=== PATIENT | female | born 1990 | race African-American/Black ===

== ENCOUNTER 2018-05-21 01:04 | Inpatient (IN) | payer MEDICARE, OTHER ==
[2018-05-21 02:43] LABS: #Basophils 0.1 thou/uL (0.0-0.2); #Eosinphils 0.2 thou/uL (0.0-0.7); #Lymphocytes 1.2 thou/uL (1.20-3.40); #Monocytes 0.9 thou/uL (0.11-0.59); #Neutrophils 4.2 thou/uL (1.40-6.50); %Basophils 0.8 % (0.0-1.0); %Eosinophils 2.4 % (0.0-10.0); %Lymphocytes 18.3 % (21.0-51.0); %Monocytes 13.5 % (0.0-10.0); Mean Corpuscular HGB CONC 31.6 g/dL (32.0-36.0); Mean Corpuscular Hemoglobin 28.4 pg (27.0-31.0); Mean Corpuscular Volume 89.8 fL (78.0-98.0); Mean Platelet Volume 8.3 fL (7.4-10.4); Platelet Count 294 thou/uL (130-400); RBC Distribution Width 15.9 % (11.5-14.5); Red Blood Cell (RBC) Count 4.22 mill/uL (4.20-5.40); White Blood Cell (WBC) Count 6.5 thou/uL (4.8-10.8)
[2018-05-21] MEDS ORDERED: diphenhydrAMINE 25 MG CAP PO SCH (03:00)
[2018-05-21 03:04] LABS: ALT (SGPT) Less than 7 U/L (8-55); AST (SGOT) 11 U/L (5-34); Albumin 3.7 g/dL (3.5-5.0); Alkaline Phosphatase 54 U/L (40-150); Anion Gap 11 mmol/L (10-20); BHCG - Serum Negative (NEGATIVE); BUN (Urea Nitrogen) 10 mg/dL (7.0-18.7); Bilirubin, Total 0.2 mg/dL (0.2-1.2); Calc. Creatinine Clearance 0 mL/min (70-130); Calcium 9.4 mg/dL (7.8-10.44); Carbon Dioxide 24 mmol/L (22-29); Chloride 106 mmol/L (98-107); Estimated GFR-MDRD Greater than 90; Globulin 3.3 g/dL (2.4-3.5); Glucose 88 mg/dL (70-105); Lipase 22 U/L (8-78); Potassium 3.2 mmol/L (3.5-5.1); Pregs Control Background? CLEAR/WHITE (CLR/WHITE); Pregs Control Bar Appear? YES (CONTROL BAR); Sodium 138 mmol/L (136-145)
[2018-05-21] MEDS ORDERED: Promethazine HCl 25 MG/ML VIAL ONE ×2 (03:09→06:15)
[2018-05-21] MEDS ORDERED: Morphine 4 MG/ML VIAL ONE (03:09)
[2018-05-21 03:45] LABS: Bilirubin Small (Negative); Blood, Urine Trace (Negative); Clarity CLOUDY (Clear); Glucose, Urine (Dipstick) Negative (Negative); Leukocyte Negative (Negative); Nitrite Negative (Negative); Protein, Urine (Dipstick) Trace mg/dL (Neg-Trace); Specific Gravity, Urine 1.034 (1.002-1.036)
[2018-05-21 03:48] LABS: Bacteria/HPF None Seen HPF (None Seen); WBC/HPF 0-3 HPF (0-3); Yeast-AUWi Flag 7.5 (0-25.0)
[2018-05-21 03:49] LABS: Hyaline Casts/LPF 0-3 HYALINE CAST LPF (0-3 Hyaline); Other Casts/LPF None Seen LPF (0-3 Hyaline); Oval Fat Bodies/HPF None Seen HPF (None Seen); Pathc Cast-AUWi Flag 3.63 (0-2.49); Renal Epithelial None Seen HPF (0-3); Sperm/HPF None Seen HPF (None Seen); Transitional Epithelial NONE SEEN HPF (0-3); Trichomonas/HPF None Seen HPF (None Seen); Yeast-All Forms None Seen HPF (None Seen)
[2018-05-21] MEDS ORDERED: cefTRIAXone\\ROCEPHIN 1 GM VIAL ONE (05:02)
[2018-05-21] MEDS ORDERED: Dexamethasone 10 MG/ML VIAL ONE (05:02)
[2018-05-21] MEDS ORDERED: Azithromycin 250 MG TAB ONE (05:02)
[2018-05-21] MEDS ORDERED: Morphine 4 MG/ML VIAL IV PRN (06:48)
[2018-05-21] MEDS ORDERED: D5 1/2 NS w/20 mEq KCL 1,000 ML IV SCH (06:49)
[2018-05-21] MEDS ORDERED: Ondansetron HCl/PF 4 MG/2 ML Vial IVP PRN ×2 (06:49→12:44)
[2018-05-21] MEDS ORDERED: Ondansetron ODT 4 MG TAB SL PRN (06:49)
--- NOTE | 2018-05-21 08:02 | CT ---
CT ABDOMEN AND PELVIS WITH IV CONTRAST: Date: 05/21/18 INDICATION: History of burning with urination, right lower quadrant pain for last couple of days, nausea and vomi ting. History of appendectomy and intestinal surgery x2. COMPARISON: None. FINDINGS: There is significant motion artifact that limits image detail. There is wall thickening involving the duodenum and jejunum, as well as the rectum, sigmoid colon, de scending colon, and portions of the transverse colon. No definite drainable fluid collection is evide nt. There is a lobulated and loculated fluid density lesion within the right hemipelvis. This measures 5. 3 cm. A small hypodense lesion is seen in the region of the left adnexa measuring 1.9 cm. No free flu id is evident. No definite focal hepatic lesion is evident within the limitations of the exam. Portions of the liver are not within the field of view due to motion artifact. There is slight dilatation of the main panc reatic duct. Spleen is normal in size. Adrenal glands and visualized kidneys are unremarkable. The bl adder is largely decompressed. No definite acute osseous abnormality is evident. IMPRESSION: 1. Limitations to the exam due to motion artifact. 2. Wall thickening involving loops of duodenum, jejunum, rectum, sigmoid colon, descending colon, an d transverse colon. Findings are suspicious for an enterocolitis of inflammatory origin such as Crohn 's disease. Recommend correlation with patient's history. No definite drainable fluid collection is e vident. 3. Lobulated hypodense lesions within the adnexal regions bilaterally suspicious for adnexal cystic lesions. Further evaluation with pelvic ultrasound would be recommended for additional characterizati on. POS: NITIN
[2018-05-21] MEDS ORDERED: Dexamethasone 4 mg/ml Vial SLOW IVP SCH (09:00)
[2018-05-21] MEDS ORDERED: diphenhydrAMINE 50 MG/ML VIAL IVP PRN (10:15)
[2018-05-21] MEDS ORDERED: Prevnar 13-Val Conj/PF 0.5 ML SYRINGE IM ONE ×2 (12:00→14:00)
[2018-05-21] MEDS ORDERED: ISOVUE-370 76%-LOCM 1 ML ONE (12:26)
[2018-05-21] MEDS ORDERED: Acetaminophen 500 MG TAB PO PRN (12:44)
[2018-05-21] MEDS ORDERED: Ondansetron ODT 4 MG TAB PO PRN (12:44)
[2018-05-21] MEDS ORDERED: traMADol HCl 50 MG TAB PO PRN (12:44)
[2018-05-21] MEDS ORDERED: predniSONE 20 MG TAB PO SCH (12:45)
[2018-05-21] MEDS ORDERED: Potassium Chloride 20 MEQ TAB PO SCH (13:00)
[2018-05-21] MEDS: Sodium Chloride 0.9% 1,000 ML IV SCH ×2 (13:16→22:53)
--- NOTE | 2018-05-21 13:21 | HP ---
DATE OF ADMISSION: 05/21/2018 PRIMARY CARE PHYSICIAN: Alva kline. CHIEF COMPLAINT: Nausea, vomiting, and diarrhea. HISTORY OF PRESENT ILLNESS: This is a 27-year-old -Monegasque female with a history of Crohn di marlon, presenting with approximately a week long history of increased right lower quadrant abdominal pain, nausea, vomiting, and diarrhea x3 episodes with some blood tinged stool. The patient states santi arora has recently been placed on a prednisone taper by her previous physician in the [place] area. The [facility] states she has relocated to the [place], [place] area and will need to establish with a local GI d octor in the [facility]. The patient also admits to taking ciprofloxacin and mesalam ine for her Crohn disease. The patient admitted to subjective fever but did not take her temperature . The patient initially described the abdominal pain as sharp in nature with cramping and diarrhea a s stated previously. The patient denied any recent travel history or family members with similar sym ptoms or recent trauma. In the emergency room, the patient underwent general evaluation including CT imaging of the abdomen and pelvis showing technically limited study due to motion artifact; however, the patient was noted with multiple loops of bowel with wall thickening concerning for enterocolitis in the context of Crohn disease. The patient received Phenergan, Decadron normal saline, Benadryl, morphine sulfate as well as the Zithromax and Rocephin after complaining of vaginal discharge. The [facility] states her last menstrual period was on 05/16/2018 and was normal. Serum beta hCG was noted n egative in the emergency room. PAST MEDICAL HISTORY: 1. Crohn disease. Last flare with hospitalization approximately 4 months prior to this evaluation. 2. Anemia secondary to Crohn disease. PAST SURGICAL HISTORY: 1. Status post bowel resection x2. 2. Status post appendectomy. CURRENT MEDICATIONS: 1. Ciprofloxacin 500 mg p.o. b.i.d. 2. Mesalamine 800 mg p.o. b.i.d. 3. Prednisone taper. ALLERGIES: No known drug allergies. FAMILY HISTORY: No inheritable diseases per patient report. SOCIAL HISTORY: Patient resides in [place], [place] moving from the [place], [place] area. Smokes up to perez lf a pack of cigarettes daily. No alcohol or illicit drug use. REVIEW OF SYSTEMS: The following complete review of systems was negative, unless otherwise mentioned in the HPI or below: Constitutional: Weight loss or gain, ability to conduct usual activities. Sk in: Rash, itching. Eyes: Double vision, pain. ENT/Mouth: Nose bleeding, neck stiffness, pain, te nderness. Cardiovascular: Palpitations, dyspnea on exertion, orthopnea. Respiratory: Shortness of breath, wheezing, cough, hemoptysis, fever or night sweats. Gastrointestinal: Poor appetite, abdom inal pain, heartburn, nausea, vomiting, constipation, or diarrhea. Genitourinary: Urgency, frequenc y, dysuria, nocturia. Musculoskeletal: Pain, swelling. Neurologic/Psychiatric: Anxiety, depressio n. Allergy/Immunologic: Skin rash, bleeding tendency. PHYSICAL EXAMINATION: VITAL SIGNS: Currently, blood pressure 136/82, pulse 87, respiratory rate 20, temperature 97.9 degre es Fahrenheit, O2 saturation 99% on room air. GENERAL APPEARANCE: This is a 27-year-old -Monegasque female, alert and oriented x3, pleasant, responsive, in no acute distress. HEENT: Pupils are equal, round, and reactive to light and accommodation. Extraocular muscles are in tact. No scleral icterus, no conjunctival injection. Nares patent. OP is clear. Teeth in good rep air. NECK: Supple, no cervical adenopathy, no thyromegaly, no carotid bruits, no JVD appreciated. Cervic al spine with full active and passive range of motion. No meningeal signs appreciated. CHEST: Lungs are clear to auscultation bilaterally. CARDIOVASCULAR: S1, S2, without noted murmur, rub or gallop. ABDOMEN: Rounded, soft with mild tenderness to palpation in the right lower quadrant. Bowel sounds are positive in all four quadrants. No palpable mass. No rebound or guarding noted. EXTREMITIES: Warm and dry with fair turgor. No clubbing, cyanosis or asymmetric edema appreciated. Pulses are palpable distally at the dorsalis pedis, posterior tibial, and popliteal arteries bilater ally. Capillary refill less than 2 seconds. NEUROLOGIC: Cranial nerves II-XII are grossly intact. No focal or lateralizing signs appreciated. PERTINENT LABORATORY AND X-RAY FINDINGS: Sodium 138, potassium 3.2, chloride 106, CO2 of 24, BUN 10, creatinine 0.82, glucose 88, calcium 9.4. LFTs within normal limits. Serum beta hCG negative x1. Lipase 22. CBC showed a white blood cell count of 6.5, hemoglobin 12, hematocrit 38, platelet count 294 with 65% neutrophils. Urinalysis showed trace ketones, negative nitrite and leukocyte esterase. 7-[address] squamous epithelial cells noted. CT of the abdomen and pelvis dated 05/21/2018 showed a limite d exam due to motion artifact. Thickening of multiple bowel loops including the duodenum, jejunum, r ectum and entire colon. Findings concerning for enterocolitis. ASSESSMENT AND PLAN: 1. Crohn's enterocolitis. Acute flare currently. We will continue supportive management to include intravenous normal saline at 100 mL per hour. We will initiate prednisone 40 mg p.o. daily due to i ntolerance to IV dexamethasone. Resume mesalamine 800 mg p.o. b.i.d. Clear liquids as tolerated. W e will consult GI service for further recommendations. Check stool studies to include stool culture and Clostridium difficile antigen and toxin. Hold antibiotic therapy. 2. Hypokalemia. Potassium chloride 40 mEq p.o. b.i.d. Repeat potassium level in the a.m. 3. Tobacco use. We will offer smoking cessation resources prior to discharge. 4. Cervicitis. Questionable etiology. Recent menses 05/16/2018. Vaginitis panel pending. GC and chlamydia pending. 5. Prophylaxis. Sequential compression devices while in bed. Pepcid 20 mg p.o. b.i.d. 6. Code status is FULL. Surrogate medical decision maker is the patient's mother.
[2018-05-21] MEDS: Morphine 4 MG/ML VIAL SLOW IVP PRN ×2 (16:04→20:27)
[2018-05-21] MEDS: Mesalamine DR 400 mg Capsule PO SCH (20:26)
[2018-05-21] MEDS: Famotidine 20 MG TAB PO SCH (20:26)
[2018-05-21 23:11] LABS: Chlamydia by PCR Not Detected (NotDetected); GC by PCR Not Detected (NotDetected)
--- NOTE | 2018-05-22 03:49 | CON ---
DATE OF CONSULTATION: 05/21/2018 CHIEF COMPLAINT: Abdominal pain. HISTORY OF PRESENT ILLNESS: Ms. Clark is a 27-year-old woman who was first diagnosed with Crohn's di marlon around age 7. She presented with appendicitis and underwent appendectomy at that time. She un derwent her first small bowel resection at age 9. After that, she was treated with Asacol and Imura n. The Imuran did not help. Around age 14, she was started on Remicade and she went back and forth between Remicade and Humira every few months at first and ultimately remained on Humira until around age 19. She started developing abscesses and her Remicade may have been stopped around age 20 and th en around age 21 or 22, she underwent her second small bowel resection. She since then was not resta rted on an anti-TNF and was treated with Asacol. Around a year ago, she was admitted to the hospital for a short period and has been on and off prednisone maybe around 3 times over the last year. Lucio person in 02/2018, she was admitted to the hospital in [place] and again started on prednisone and she h as been on a continuous dose of prednisone 20 mg for around the last 3 months. She had a colonoscopy around 1-1/2 months ago in [facility] in [place]. She states that she had some anal inflammation but was not told that if she had a colon inflammation at that time. She has since moved within the last wee k or two to [place] and now presents to the hospital with a 3-4 day course of right lower quadrant cram ping abdominal pain and some associated nausea and vomiting. She has had no fever with this. Her we ight has been stable over the last month. She has had no blood in the stool, no hematemesis. She wa s started on antibiotics and her prednisone was increased to 40 mg. She was thought to have possible cervicitis as well. She has been taking mesalamine 800 mg twice daily over the last few months as gwen braxton. PAST MEDICAL HISTORY: 1. Crohn's disease with what sounds like most likely fibrostenotic disease given that she has had 2 small bowel resections. She has also had abscesses preceding her second bowel resection and could perez ve penetrating disease as well. 2. Chronic anemia. 3. She reports she was diagnosed with pancreatitis around age 17. She states she was told it was du e to alcohol and dehydration. However, I would question if she was on azathioprine at that time as a possible etiology for that. It would be unusual for alcohol to cause pancreatitis in a 17-year-old. FAMILY HISTORY: Her sister has Crohn's disease. No GI malignancies. SOCIAL HISTORY: She smokes 1/4 of a pack to half a pack a day. She drinks alcohol 2 or 3 times per month, a couple of drinks at a time. She smokes marijuana in the more distant past, but no history o f IV drug use. ALLERGIES: No known drug allergies. MEDICATIONS: Prior to admission include mesalamine 800 mg twice daily. She has been on prednisone 2 0 mg daily over the last 2-3 months. She has been taking iron and antibiotics prior to admission as well. REVIEW OF SYSTEMS: She reports some chronic numbness and pain in her right leg. Otherwise, 10 syste ms reviewed are negative. PHYSICAL EXAMINATION: VITAL SIGNS: Temperature 98.0, pulse 51, blood pressure 148/84. GENERAL: She is in no acute distress, alert and oriented x3. HEENT: Eyes have no scleral icterus. Oropharynx is clear, without lesions. NECK: No cervical or supraclavicular lymphadenopathy. LUNGS: Clear to auscultation bilaterally. HEART: Regular rate and rhythm without murmur. ABDOMEN: Soft. She does have tenderness with slight voluntary guarding in the right lower quadrant. Her bowel sounds are active. EXTREMITIES: No lower extremity edema. NEUROLOGIC: Cranial nerves are grossly intact. LABORATORY DATA: White blood cell count 6.5, hemoglobin 12.0, platelets 294. Eosinophil count is 2. 4, creatinine 0.82, bilirubin 0.2, AST 11, ALT 7, alkaline phosphatase 54, albumin 3.7, lipase 22. IMAGING: She had a CT scan of the abdomen and pelvis at 1:00 this morning which showed wall thickeni ng of the duodenum, jejunum, rectum, sigmoid colon and descending colon and parts of the transverse c olon. No abscesses were noted. There was an adnexal cyst measuring 5.3 cm, or a cystic lesion at le ast. IMPRESSION: 1. Crohn's disease of the small and large intestine diagnosed at age 7 since she has undergone appen dectomy and then two small bowel resections. She most likely has fibrostenotic disease and possibly penetrating disease as well. She has not been on any biologic treatment since her last bowel resecti on at age 22. She has been on 5-ASA compounds and over the last year intermittent courses of prednis one. For the last 2-3 months, she has been on a continuous prednisone dose at 20 mg daily. Clearly, she has aggressive disease given the need for surgeries in the early age of onset. She needs to be on a biologic agent. Since she has been on and off Humira and Remicade multiple times, I would avoid these medicines due to risk for antibody formation. The next step in treatment for her should be to start Cimzia. We will have to check viral hepatitis panel and HIV and TB screening before that. Winifred arora has been on a Medicaid product that apparently has been pretty well covered in [place], but I am not familiar with. She states when she is in [place]. She has been on [place] and then the process of approval for biologic agent may take a month or more. In the meantime, she will just have to be treated with prednisone. The Asacol likely has a limited role for small bowel Crohn's disease; however, since she is already on this and we are not a dding any new actual treatments for Crohn's at this point, I would continue. Clinically, she is impr rossy with the higher dose prednisone and antibiotics and therefore I will not change her to IV steroi ds at this point. We should be able to advance her diet as she tolerates tomorrow. RECOMMENDATIONS: 1. Continue prednisone 40 mg daily, and then taper this back to 20 mg over the next couple of weeks. 2. We will complete a course of antibiotics. 3. Stool studies for Clostridium difficile culture, ova and parasites and also as an outpatient, we can follow the fecal calprotectin and C-reactive protein. 4. She states she just had a colonoscopy in [place] a month and a half ago. I will request these res ults rather than repeating colonoscopy at this time. 5. I did discuss the importance of smoking cessation in the setting of Crohn's disease.
[2018-05-22] MEDS: Morphine 4 MG/ML VIAL SLOW IVP PRN ×5 (04:21→21:23)
[2018-05-22 04:56] LABS: Anion Gap 10 mmol/L (10-20); BUN (Urea Nitrogen) 5 mg/dL (7.0-18.7); Calc. Creatinine Clearance 273 mL/min (70-130); Calcium 8.3 mg/dL (7.8-10.44); Carbon Dioxide 23 mmol/L (22-29); Chloride 109 mmol/L (98-107); Estimated GFR-MDRD Greater than 90; Glucose 111 mg/dL (70-105); Sodium 138 mmol/L (136-145)
[2018-05-22 05:02] LABS: Hemoglobin 10.7 g/dL (12.0-16.0); Hypochromia SLIGHT = 6-15 cells (100X) (0-5/hpf); Lymphocytes 10 % (21-51); MDiff Complete? YES; Mean Corpuscular HGB CONC 30.5 g/dL (32.0-36.0); Mean Corpuscular Hemoglobin 27.6 pg (27.0-31.0); Mean Corpuscular Volume 90.3 fL (78.0-98.0); Mean Platelet Volume 8.4 fL (7.4-10.4); Monocytes 6 % (0-10); Neutrophil 84 % (42-75); PLT Morphology Comment Appears Adequate; Platelet Count 249 thou/uL (130-400); RBC Distribution Width 15.7 % (11.5-14.5); Red Blood Cell (RBC) Count 3.87 mill/uL (4.20-5.40); White Blood Cell (WBC) Count 9.8 thou/uL (4.8-10.8)
[2018-05-22 05:17] LABS: HBSAg Index 0.21 S/CO (0-0.99); Hep B Core Total Ab Non-Reactive (NonReactive); Hep B Core Total Index 0.14 S/CO (0-0.79); Hep B Surf Ag Non-Reactive S/CO (NonReactive); Hep C IgG Ab Non-Reactive (NonReactive); Hep C Index 0.17 S/CO (0-0.79)
[2018-05-22 05:59] LABS: HBSAB Concentration 240.87 mIU/mL; Hep B Surf AB Reactive (NonReactive)
[2018-05-22] MEDS: Mesalamine DR 400 mg Capsule PO SCH ×2 (08:48→21:20)
[2018-05-22] MEDS: predniSONE 20 MG TAB PO SCH (08:49)
[2018-05-22] MEDS: Sodium Chloride 0.9% 1,000 ML IV SCH ×2 (08:55→18:36)
[2018-05-22] MEDS: Famotidine 20 MG TAB PO SCH ×2 (09:01→21:22)
[2018-05-22 12:02] VITALS: BMI 19.5
[2018-05-22] MEDS ORDERED: Vancomycin HCl 25 MG/ML Oral PO SCH (16:45)
--- NOTE | 2018-05-22 17:19 | PRG ---
DATE OF SERVICE: 05/22/2018 SUBJECTIVE: Ms. Clark had a couple of diarrhea stools today. No blood in the stool. She has contin ued pain in the right lower quadrant. She is tolerating a liquid diet. OBJECTIVE: VITAL SIGNS: Temperature 98.2, pulse 60, blood pressure 125/78. GENERAL: She is in no acute distress, alert and oriented x3. HEENT: Eyes have no scleral icterus. Oropharynx is clear without lesions. LUNGS: Clear to auscultation bilaterally. HEART: Regular rate and rhythm without murmur. ABDOMEN: Soft. Mild tenderness in the right lower quadrant without guarding. Bowel sounds are pres ent. EXTREMITIES: No lower extremity edema. LABORATORY DATA: White blood cell count 9.8, hemoglobin 10.7, platelets 249, creatinine 0.6. Hepati tis B surface antibody is reactive, antigen is negative. IMPRESSION: 1. Crohn's enterocolitis with history of complicated disease requiring bowel resections and abscesse s. She has been off anti-TNF for the last few years. 2. Clostridium difficile colitis. Her stool studies are positive for toxigenic C. diff by PCR. RECOMMENDATIONS: 1. Continue prednisone 40 mg daily. 2. Vancomycin 125 mg 4 times daily. 3. Obtained the colonoscopy report from [facility] from a month and a half ago. 4. Dr. Vega will cover the weekend.
--- NOTE | 2018-05-22 20:03 | PDOC.PN ---
- Subjective Encounter Start Date: 05/22/18 Encounter Start Time: 20:00 Subjective: f/u for Crohn's enterocolitis and C. difficile colitis. Currently receiving -: Prednisone and Vancomycin. - Objective Resuscitation Status: Resuscitation Status FULL:Full Resuscitation MAR Reviewed: Yes Vital Signs & Weight: Weight Weight 121 lb I&O: 05/21/18 05/22/18 05/23/18 06:59 06:59 06:59 Intake Total 3902 3452 Balance 3902 3452 Result Diagrams: 05/22/18 04:12 05/22/18 04:12 Additional Labs: Microbiology 05/21/18 21:50 Stool - Liquid Stool Occult Blood (SHERITA) - Final 05/21/18 21:50 Stool - Liquid Stool Lactoferrin - Final 05/21/18 21:50 Stool - Liquid Campylobacter Antigen Assay - Final 05/21/18 21:50 Stool - Liquid Shiga Toxin Test - Final 05/21/18 21:50 Stool - Liquid C. difficile GDH Antigen & Toxins - Final 05/21/18 21:50 Stool - Liquid Clostridium difficile Toxin A&B PCR - Final 05/21/18 02:10 Cervix Vaginitis Screen - Final 05/21/18 21:50 Stool - Liquid Stool Culture - Preliminary Laboratory Tests 05/21/18 05/21/18 05/22/18 02:10 02:24 04:12 Potassium 3.2 L Chlamydia DNA (PCR) Not Detected Hep Bs Antigen Non-Reactive Hep Bs Antibody Reactive Hep B Core Total Ab Non-Reactive Hepatitis C Antibody Non-Reactive Phys Exam - Physical Examination Constitutional: NAD HEENT: PERRLA, sclera anicteric, oral pharynx no lesions Neck: no nodes, no JVD, supple, full ROM Respiratory: no wheezing, no rales, no rhonchi, clear to auscultation bilateral S1, S2 Cardiovascular: RRR, no significant murmur, no rub, gallop mild TTP diffusely Gastrointestinal: soft, no distention, positive bowel sounds Musculoskeletal: no edema, pulses present Neurological: non-focal, normal sensation, moves all 4 limbs Psychiatric: normal affect, A&O x 3 Skin: normal turgor, cap refill <2 seconds Dx/Plan (1) Crohn's regional enteritis Code(s): K50.90 - CROHN'S DISEASE, UNSPECIFIED, WITHOUT COMPLICATIONS Status: Acute Comment: Continue Prednisone 40mg po daily, continue Mesalamine (2) Clostridium difficile colitis Status: Acute Comment: Vancomycin 125mg po QID (3) Abdominal pain Code(s): R10.9 - UNSPECIFIED ABDOMINAL PAIN Status: Acute Qualifiers: Abdominal location: generalized Qualified Code(s): R10.84 - Generalized abdominal pain Comment: Morphine Sulfate IV, IVF's (4) Hypokalemia Code(s): E87.6 - HYPOKALEMIA Status: Acute Comment: KCL 40meq BID, repeat K + level in am - Plan continue antibiotics, social insurance specialist, out of bed/ambulate, DVT proph w/SCDs Stable overall -: Continue Vancomycin 125mg po QID -: Continue Prednisone 40mg daily -: Continue IVF's -: AM lab: BMP, CBC * convert to inpt status
[2018-05-22] MEDS: Vancomycin HCl 25 MG/ML Oral PO SCH (21:25)
[2018-05-23] MEDS: Morphine 4 MG/ML VIAL SLOW IVP PRN ×5 (01:10→18:42)
[2018-05-23] MEDS: Sodium Chloride 0.9% 1,000 ML IV SCH ×2 (04:12→15:00)
[2018-05-23 05:37] LABS: Anion Gap 8 mmol/L (10-20); BUN (Urea Nitrogen) 4 mg/dL (7.0-18.7); Calc. Creatinine Clearance 106 mL/min (70-130); Calcium 8.4 mg/dL (7.8-10.44); Carbon Dioxide 25 mmol/L (22-29); Chloride 110 mmol/L (98-107); Estimated GFR-MDRD Greater than 90; Glucose 82 mg/dL (70-105); Potassium 3.7 mmol/L (3.5-5.1); Sodium 139 mmol/L (136-145)
[2018-05-23 05:56] LABS: HIV (1/2) Antibody/Antigen Non-Reactive (NonReactive)
[2018-05-23 06:13] LABS: Hemoglobin 10.5 g/dL (12.0-16.0); Mean Corpuscular Hemoglobin 28.2 pg (27.0-31.0); Mean Corpuscular Volume 90.9 fL (78.0-98.0); Mean Platelet Volume 8.3 fL (7.4-10.4); Platelet Count 238 thou/uL (130-400); RBC Distribution Width 15.9 % (11.5-14.5); Red Blood Cell (RBC) Count 3.72 mill/uL (4.20-5.40); White Blood Cell (WBC) Count 6.5 thou/uL (4.8-10.8)
[2018-05-23 06:14] LABS: Band 7 % (5-11); Lymphocytes 22 % (21-51); MDiff Complete? YES; Monocytes 7 % (0-10); Neutrophil 64 % (42-75)
[2018-05-23] MEDS: Famotidine 20 MG TAB PO SCH ×2 (08:35→20:46)
[2018-05-23] MEDS: predniSONE 20 MG TAB PO SCH (08:35)
[2018-05-23] MEDS: Mesalamine DR 400 mg Capsule PO SCH ×2 (08:36→20:47)
[2018-05-23] MEDS: Vancomycin HCl 25 MG/ML Oral PO SCH ×4 (09:43→20:48)
--- NOTE | 2018-05-23 13:51 | PRG ---
DATE OF SERVICE: 05/23/2018 SUBJCETIVE: This is a 27-year-old female with history of Crohn's disease, which is longstanding. The patient has had 2 surgeries done on over the years. The first one was done in [facility] and second one was in 2012, which was done in [place]. The patient apparently was taking some Humi ra and Remicade in the past. She has not seen a pigment furnace tender . The patient admitted to [facility] because of abdominal pain, diarrhea. She was found to have C. difficile in the stool o n vancomycin. She appears comfortable. She had three stools yesterday, but she has only one stool t donald. The stool is small today. She has no abdominal pain, no nausea, no vomiting today. PHYSICAL EXAMINATION: GENERAL: She is very thin built, appears comfortable, afebrile. VITAL SIGNS: Pulse is 47, blood pressure 147/82. CARDIOVASCULAR SYSTEM AND LUNGS: Within normal limits. ABDOMEN: Soft. Abdomen is nondistended. She has a midline scar to the lower abdomen. Abdomen is m ildly tender. There is no rebound or guarding. LABORATORY DATA: The lab data from today, CBC shows WBC 6500, hemoglobin 10.5, hematocrit 33.8, plat elet count 238,000. Chemistries: Sodium 139, potassium 3.7, chloride 110, bicarbonate 25, BUN is 4, creatinine 0.68. RECOMMENDATIONS: Continue vancomycin. I have encouraged the patient to increase her dietary intake. If her stool frequency is less, we may consider discharge in the next 24-48 hours. The patient marianne l see Dr. Bianchi as an outpatient in the future.
--- NOTE | 2018-05-23 15:16 | PDOC.PN ---
- Subjective Encounter Start Date: 05/23/18 Encounter Start Time: 15:15 Subjective: f/u for Crohn's enteritis and C. diff colitis on Prednisone/ Vancomycin. -: Overall feeling better. Still with some abd cramps. Tolerating po intake. - Objective Resuscitation Status: Resuscitation Status FULL:Full Resuscitation Vital Signs & Weight: Vital Signs (12 hours) Temp Pulse Resp BP Pulse Ox 05/23/18 14:44 51 L 18 129/76 96 05/23/18 08:29 98.1 F 47 L 18 147/82 H 100 05/23/18 08:00 100 Weight Weight 121 lb I&O: 05/22/18 05/23/18 05/24/18 06:59 06:59 06:59 Intake Total 3902 4292 Balance 3902 4292 Result Diagrams: 05/23/18 05:00 05/23/18 05:00 Additional Labs: Microbiology 05/21/18 21:50 Stool - Liquid Stool Occult Blood (SHERITA) - Final 05/21/18 21:50 Stool - Liquid Stool Lactoferrin - Final 05/21/18 21:50 Stool - Liquid Campylobacter Antigen Assay - Final 05/21/18 21:50 Stool - Liquid Shiga Toxin Test - Final 05/21/18 21:50 Stool - Liquid C. difficile GDH Antigen & Toxins - Final 05/21/18 21:50 Stool - Liquid Clostridium difficile Toxin A&B PCR - Final 05/21/18 02:10 Cervix Vaginitis Screen - Final 05/21/18 21:50 Stool - Liquid Stool Culture - Preliminary Laboratory Tests 05/21/18 05/21/18 05/22/18 02:10 02:24 04:12 Potassium 3.2 L Chlamydia DNA (PCR) Not Detected Hepatitis A Ab Total Hep Bs Antigen Non-Reactive Hep Bs Antibody Reactive Hep B Core Total Ab Non-Reactive Hepatitis C Antibody Non-Reactive HIV 1&2 Antigen & Ab N gonorrhoeae DNA (PCR) Not Detected 05/22/18 05/23/18 04:12 05:00 Potassium Chlamydia DNA (PCR) Hepatitis A Ab Total Negative Hep Bs Antigen Hep Bs Antibody Hep B Core Total Ab Hepatitis C Antibody HIV 1&2 Antigen & Ab Non-Reactive N gonorrhoeae DNA (PCR) Phys Exam - Physical Examination Constitutional: NAD HEENT: PERRLA, sclera anicteric, oral pharynx no lesions Neck: no nodes, no JVD, supple, full ROM Respiratory: no wheezing, no rales, no rhonchi, clear to auscultation bilateral S1, S2 Cardiovascular: RRR, no significant murmur, no rub, gallop mild TTP Gastrointestinal: soft, positive bowel sounds Musculoskeletal: no edema, pulses present Neurological: non-focal, normal sensation, moves all 4 limbs Psychiatric: normal affect, A&O x 3 Skin: normal turgor, cap refill <2 seconds Dx/Plan (1) Crohn's regional enteritis Code(s): K50.90 - CROHN'S DISEASE, UNSPECIFIED, WITHOUT COMPLICATIONS Status: Acute Comment: Continue Prednisone 40mg po daily, continue Mesalamine (2) Clostridium difficile colitis Status: Acute Comment: Vancomycin 125mg po QID, likely will need taper dosing for d/c (3) Abdominal pain Code(s): R10.9 - UNSPECIFIED ABDOMINAL PAIN Status: Acute Qualifiers: Abdominal location: generalized Qualified Code(s): R10.84 - Generalized abdominal pain Comment: Morphine Sulfate IV, IVF's (4) Hypokalemia Code(s): E87.6 - HYPOKALEMIA Status: Acute Comment: KCL 40meq BID, repeat K + level in am - Plan continue antibiotics, out of bed/ambulate Stable currently -: Continue po Vancomycin with tapering regimen for d/c -: Saline Lock IVF -: OOB/ambulate -: Likely home in am 05/24/18 * .
[2018-05-23] MEDS: HYDROcodone/Acetaminophen 5/325 mg Tablet PO PRN (20:48)
[2018-05-24] MEDS: HYDROcodone/Acetaminophen 5/325 mg Tablet PO PRN ×3 (04:05→22:38)
[2018-05-24] MEDS: Vancomycin HCl 25 MG/ML Oral PO SCH ×4 (09:12→21:49)
[2018-05-24] MEDS: Famotidine 20 MG TAB PO SCH ×2 (09:12→21:51)
[2018-05-24] MEDS: predniSONE 20 MG TAB PO SCH (09:12)
[2018-05-24] MEDS: Mesalamine DR 400 mg Capsule PO SCH ×2 (09:12→21:49)
[2018-05-24] MEDS: Morphine 4 MG/ML VIAL SLOW IVP PRN ×3 (09:16→19:43)
--- NOTE | 2018-05-24 10:18 | PDOC.PN ---
- Subjective Encounter Start Date: 05/24/18 Encounter Start Time: 07:00 -: old records requested/rev pt has diarrhoea 5-6 times per day, no fever - Objective Resuscitation Status: Resuscitation Status FULL:Full Resuscitation MAR Reviewed: Yes Vital Signs & Weight: Vital Signs (12 hours) Temp Pulse Resp BP Pulse Ox 05/24/18 08:00 98.0 F 53 L 16 151/80 H 99 Weight Weight 121 lb I&O: 05/23/18 05/24/18 05/25/18 06:59 06:59 06:59 Intake Total 4292 1600 Balance 4292 1600 Result Diagrams: 05/23/18 05:00 05/23/18 05:00 Phys Exam - Physical Examination Constitutional: NAD HEENT: PERRLA, moist MMs, sclera anicteric Neck: no JVD, supple Respiratory: no wheezing, no rales, no rhonchi Cardiovascular: RRR, no significant murmur, no rub Gastrointestinal: soft, non-tender, no distention, positive bowel sounds Musculoskeletal: no edema, pulses present Neurological: non-focal, normal sensation, moves all 4 limbs Lymphatic: no nodes Psychiatric: normal affect, A&O x 3 Skin: no rash, normal turgor Dx/Plan (1) Abdominal pain Code(s): R10.9 - UNSPECIFIED ABDOMINAL PAIN Status: Acute Qualifiers: Abdominal location: generalized Qualified Code(s): R10.84 - Generalized abdominal pain Comment: Morphine Sulfate IV, IVF's (2) Clostridium difficile colitis Status: Acute Comment: Vancomycin 125mg po QID, likely will need taper dosing for d/c (3) Crohn's regional enteritis Code(s): K50.90 - CROHN'S DISEASE, UNSPECIFIED, WITHOUT COMPLICATIONS Status: Acute Comment: Continue Prednisone 40mg po daily, continue Mesalamine (4) Hypokalemia Code(s): E87.6 - HYPOKALEMIA Status: Acute Comment: KCL 40meq BID, repeat K + level in am - Plan cont current plan of care, continue antibiotics * medication reviewed as below * symptomatic treatment * continue vancomycin for now. Review of Systems - Review of Systems Eyes: negative: Pain, Vision Change, Conjunctivae Inflammation, Eyelid Inflammation, Redness, Other ENT: negative: Ear Pain, Ear Discharge, Nose Pain, Nose Discharge, Nose Congestion, Mouth Pain, Mouth Swelling, Throat Pain, Throat Swelling, Other Respiratory: negative: Cough, Dry, Shortness of Breath, Hemoptysis, SOB with Excertion, Pleuritic Pain, Sputum, Wheezing Cardiovascular: negative: chest pain, palpitations, orthopnea, paroxysmal nocturnal dyspnea, edema, light headedness, other Gastrointestinal: Diarrhea. negative: Nausea, Vomiting, Abdominal Pain, Constipation, Melena, Hematochezia, Other Genitourinary: negative: Dysuria, Frequency, Incontinence, Hematuria, Retention , Other Musculoskeletal: negative: Neck Pain, Shoulder Pain, Arm Pain, Back Pain, Hand Pain, Leg Pain, Foot Pain, Other Skin: negative: Rash, Lesions, Gerber, Bruising, Other - Medications/Allergies Allergies/Adverse Reactions: Allergies Allergy/AdvReac Type Severity Reaction Status Date / Time No Known Allergies Allergy Unverified 05/21/18 03:00 Medications: Current Medications Acetaminophen (Tylenol) 1,000 mg PO Q6H PRN PRN Reason: Headache/Fever or Mild Pain Hydrocodone Bitart/Acetaminophen ([place] 5/325) 1 tab PO Q4H PRN PRN Reason: Moderate Pain (4-6) Last Admin: 05/24/18 04:05 Dose: 1 tab Diphenhydramine HCl (Benadryl) 25 mg IVP Q6H PRN PRN Reason: Itching & Insomnia Famotidine (Pepcid) 20 mg PO BID [facility] Last Admin: 05/24/18 09:12 Dose: 20 mg Mesalamine (Delzicol Dr) 800 mg PO Q12HR [facility] Last Admin: 05/24/18 09:12 Dose: 800 mg Morphine Sulfate (Morphine) 4 mg SLOW IVP Q4H PRN PRN Reason: Severe Pain (7-10) Last Admin: 05/24/18 09:16 Dose: 4 mg Ondansetron HCl (Zofran Odt) 4 mg PO Q6H PRN PRN Reason: Nausea/Vomiting Ondansetron HCl (Zofran) 4 mg IVP Q6H PRN PRN Reason: Nausea/Vomiting Potassium Chloride (Klor-Con) 40 meq PO BID-[facility] Last Admin: 05/24/18 09:12 Dose: 40 meq Prednisone (Prednisone) 40 mg PO QAM-[facility] Last Admin: 05/24/18 09:12 Dose: 40 mg Vancomycin HCl (First Vancomycin) 125 mg PO QID [facility] Last Admin: 05/24/18 09:12 Dose: 125 mg
[2018-05-25] MEDS: Morphine 4 MG/ML VIAL SLOW IVP PRN ×2 (00:46→11:24)
--- NOTE | 2018-05-25 03:08 | PRG ---
DATE OF SERVICE: 05/24/2018 SUBJECTIVE: Ms. Irma Clark is a 27-year-old -[place] female with longstanding Crohn's dise ase . She has not been taken medicine recently. She also had abdominal pain, diarrhea. She wa s found to have positive stool for C. difficile. She is on vancomycin. She is on IV steroids. She is actually feeling better. She has had no stool today at all. She had 5 stools yesterday. No abdo sandoval pain, no nausea, no vomiting. PHYSICAL EXAMINATION: GENERAL: Appears comfortable, afebrile. Pulse is 53, blood pressure 151/80. HEENT: Conjunctivae clear. NECK: Supple. No adenitis or thyromegaly noted. CARDIOVASCULAR SYSTEM: First and second heart sounds normal. LUNGS: Clear to auscultation. ABDOMEN: Abdomen is soft. Abdomen is nondistended. Abdomen is nontender. There is no organomegaly or masses. CLINICAL IMPRESSION: 1. Crohn's disease. 2. Clostridium difficile colitis. RECOMMENDATIONS: 1. Continue vancomycin. 2. consider discharge home tomorrow on tapering dose of steroids and vancomycin. She will fol low with Dr. Jarocho Bianchi as an outpatient.
[2018-05-25] MEDS: HYDROcodone/Acetaminophen 5/325 mg Tablet PO PRN ×2 (04:23→08:51)
[2018-05-25] MEDS: Vancomycin HCl 25 MG/ML Oral PO SCH ×2 (08:22→14:10)
[2018-05-25] MEDS: Famotidine 20 MG TAB PO SCH (08:23)
[2018-05-25] MEDS: predniSONE 20 MG TAB PO SCH (08:23)
[2018-05-25] MEDS: Mesalamine DR 400 mg Capsule PO SCH (08:24)
[2018-05-25 09:55] VITALS: BP 129/78; TEMP 98
--- NOTE | 2018-05-25 10:35 | PDOC.PN ---
- Subjective Encounter Start Date: 05/25/18 Encounter Start Time: 07:00 still has diarrhoea, no new problems - Objective Resuscitation Status: Resuscitation Status FULL:Full Resuscitation MAR Reviewed: Yes Vital Signs & Weight: Vital Signs (12 hours) Temp Pulse Resp BP Pulse Ox 05/25/18 08:00 98 F 82 18 129/78 98 Weight Weight 121 lb I&O: 05/24/18 05/25/18 05/26/18 06:59 06:59 06:59 Intake Total 1600 900 Balance 1600 900 Result Diagrams: 05/23/18 05:00 05/23/18 05:00 Phys Exam - Physical Examination Constitutional: NAD HEENT: PERRLA, moist MMs, sclera anicteric Neck: no JVD, supple Respiratory: no wheezing, no rales, no rhonchi Cardiovascular: RRR, no significant murmur, no rub Gastrointestinal: soft, non-tender, no distention, positive bowel sounds Musculoskeletal: no edema, pulses present Neurological: non-focal, normal sensation, moves all 4 limbs Lymphatic: no nodes Psychiatric: normal affect, A&O x 3 Skin: no rash, normal turgor Dx/Plan (1) Abdominal pain Code(s): R10.9 - UNSPECIFIED ABDOMINAL PAIN Status: Acute Qualifiers: Abdominal location: generalized Qualified Code(s): R10.84 - Generalized abdominal pain Comment: Morphine Sulfate IV, IVF's (2) Clostridium difficile colitis Status: Acute Comment: Vancomycin 125mg po QID, likely will need taper dosing for d/c (3) Crohn's regional enteritis Code(s): K50.90 - CROHN'S DISEASE, UNSPECIFIED, WITHOUT COMPLICATIONS Status: Acute Comment: Continue Prednisone 40mg po daily, continue Mesalamine (4) Hypokalemia Code(s): E87.6 - HYPOKALEMIA Status: Acute Comment: KCL 40meq BID, repeat K + level in am - Plan cont current plan of care * vancomycin taper on discharge * specific treatment for crohns as per GI * DC when GI Ok * medication reviewed as below * symptomatic treatment. Review of Systems - Review of Systems Eyes: negative: Pain, Vision Change, Conjunctivae Inflammation, Eyelid Inflammation, Redness, Other ENT: negative: Ear Pain, Ear Discharge, Nose Pain, Nose Discharge, Nose Congestion, Mouth Pain, Mouth Swelling, Throat Pain, Throat Swelling, Other Respiratory: negative: Cough, Dry, Shortness of Breath, Hemoptysis, SOB with Excertion, Pleuritic Pain, Sputum, Wheezing Cardiovascular: negative: chest pain, palpitations, orthopnea, paroxysmal nocturnal dyspnea, edema, light headedness, other Gastrointestinal: Diarrhea. negative: Nausea, Vomiting, Abdominal Pain, Constipation, Melena, Hematochezia, Other Genitourinary: negative: Dysuria, Frequency, Incontinence, Hematuria, Retention , Other Musculoskeletal: negative: Neck Pain, Shoulder Pain, Arm Pain, Back Pain, Hand Pain, Leg Pain, Foot Pain, Other Skin: negative: Rash, Lesions, Gerber, Bruising, Other - Medications/Allergies Allergies/Adverse Reactions: Allergies Allergy/AdvReac Type Severity Reaction Status Date / Time No Known Allergies Allergy Unverified 05/21/18 03:00 Medications: Current Medications Acetaminophen (Tylenol) 1,000 mg PO Q6H PRN PRN Reason: Headache/Fever or Mild Pain Hydrocodone Bitart/Acetaminophen ([place] 5/325) 1 tab PO Q4H PRN PRN Reason: Moderate Pain (4-6) Last Admin: 05/25/18 08:51 Dose: 1 tab Diphenhydramine HCl (Benadryl) 25 mg IVP Q6H PRN PRN Reason: Itching & Insomnia Famotidine (Pepcid) 20 mg PO BID [facility] Last Admin: 05/25/18 08:23 Dose: 20 mg Mesalamine (Delzicol Dr) 800 mg PO Q12HR [facility] Last Admin: 05/25/18 08:24 Dose: 800 mg Morphine Sulfate (Morphine) 4 mg SLOW IVP Q4H PRN PRN Reason: Severe Pain (7-10) Last Admin: 05/25/18 00:46 Dose: 4 mg Ondansetron HCl (Zofran Odt) 4 mg PO Q6H PRN PRN Reason: Nausea/Vomiting Ondansetron HCl (Zofran) 4 mg IVP Q6H PRN PRN Reason: Nausea/Vomiting Potassium Chloride (Klor-Con) 40 meq PO BID[facility] Last Admin: 05/25/18 08:23 Dose: 40 meq [facility]) [facility] Last Admin: 05/25/18 08:23 Dose: 40 mg Vancomycin HCl (First Vancomycin) 125 mg PO QID [facility] Last Admin: 05/25/18 08:22 Dose: 125 mg
--- NOTE | 2018-05-25 11:35 | DIS ---
DATE OF ADMISSION: 05/21/2018 DATE OF DISCHARGE: 05/25/2018 PRIMARY CARE PHYSICIAN: Robles Bernard M.D. DISCHARGE DISPOSITION: Home. PRIMARY DISCHARGE DIAGNOSES: Clostridium difficile colitis, Crohn's regional enteritis, abdominal pa in due to problem #1 and #2, hypokalemia. SECONDARY DISCHARGE DIAGNOSIS: Crohn's disease. PRIMARY PROCEDURES/OPERATIONS: None. RADIOLOGICAL INVESTIGATION: Abdomen and pelvis CT scan on admission showed wall thickening of the du odenum, jejunum, rectum, sigmoid colon, and descending colon consistent with enterocolitis. SIGNIFICANT LABORATORY DATA: WBC 6.5, hemoglobin 10.5, platelets 238. Sodium 139, potassium 3.7, BU N 4, creatinine 0.68, calcium 8.4. LFT normal. CRP 0.69. Urinalysis unremarkable. Hepatitis profi le negative. HIV negative. Chlamydia, PCR negative. Stool for infection study showed C. difficile antigen positive. DISCHARGE MEDICATIONS: Vancomycin 125 mg p.o. q.i.d. for 10 more days and then t.i.d. for 1 week and then b.i.d. for 1 week and then daily for 1 week, prednisone 40 mg p.o. daily for 1 week and then 30 mg p.o. daily for 1 week and then 20 mg p.o. daily for 1 week and then 10 mg daily, mesalamine 800 m g twice daily, Florastor 250 mg p.o. daily. CONTRAINDICATIONS: None. CODE STATUS: FULL CODE. INPATIENT CONSULTANTS: Dr. Bianchi and GI team was following while in hospital. TEST RESULTS PENDING ON DISCHARGE QuantiFERON TB Gold test. 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 HOSPITAL COURSE: This is a 27-year-old female with above-mentioned medical problem, who was admitted by Dr. Smith. Please see his H and P for further detail. The patient has underlying history of Croh n's disease. She was having diarrhea and abdominal pain. In the emergency room, she had CT abdomen and pelvis, which showed enterocolitis. We did stool study for infection, which showed stool C. diff icile positive. We treated her Clostridium difficile infection with vancomycin while in hospital. S he was also given prednisone. At this point, the patient needs specific treatment for Crohn's coliti s and enteritis and that is why TB QuantiFERON Gold test is done. Dr. Bianchi will take care of that p art as an outpatient basis after discharge. We prescribed tapering doses of vancomycin as well as pr ednisone on discharge. If Gastroenterology is okay, then we will consider discharging her home later on today. The patient is seen and examined at bedside today. Please see my progress note from today for furthe r detail.
--- NOTE | 2018-05-26 00:04 | PRG ---
DATE OF SERVICE: 05/25/2018 SUBJECTIVE: This is a 27-year-old black female with longstanding Crohn's disease. She has undergone surgery x2. The patient also has abdominal pain and diarrhea, etc. The CAT scan showed thickening of the colon and small bowel. She also had stool studies done for C. diff . She was started on vancomycin and her symptoms markedly improved. She is not having abdominal pain. No nausea, no vom iting. Her diarrhea resolved. She is eating well. OBJECTIVE: GENERAL: Appears very comfortable. She is thin built. VITAL SIGNS: Afebrile, pulse is 82, blood pressure is 129/78. CARDIOVASCULAR: First and second heart sounds normal. LUNGS: Clear to auscultation. ABDOMEN: Soft to palpate. Abdomen is nontender. Abdomen is nondistended. She has active bowel misty nds. LABORATORY DATA: No labs done today. CLINICAL IMPRESSION: 1. Crohn's disease. 2. Clostridium difficile colitis. RECOMMENDATIONS: The patient has been started on p.o. vancomycin and also tapering doses of steroids . She will follow with Dr. Jarocho Bianchi and hopefully she can get back on her Humira injections ___ __.
== END 2018-05-25 14:09 | disposition home or self-care (01) | DRG 372 ==
LOC: ERS 01:04 → EDBD 01:04 → ONC 04:55 → OBSVTOIN 04:55
PROVIDERS: ADMIT Internal Medicine; ATTEND Internal Medicine
DX: A04.72 Enterocolitis due to Clostridium difficile, not specified as recurrent (principal); K50.90 Crohn's disease, unspecified, without complications; D63.8 Anemia in other chronic diseases classified elsewhere; E87.6 Hypokalemia; N72 Inflammatory disease of cervix uteri; Z72.0 Tobacco use
CPT/HCPCS: 36415; 74177; 80048; 80053; 81003; 81015; 82274; 83630; 83690; 84703; 85007; 85025; 85027; 86140; 86480; 86704; 86706; 86708; 86803; 87045; 87046; 87324; 87340; 87389; 87449; 87480; 87491; 87493; 87510; 87591; 87660; 87899; 90471; 90670; 90686; 96361; 96365; 96367; 96375; G0008; G0009; J0696; J1100; J2270; J2405; J2550; J7506